=== PATIENT | female | born 1975 | race Caucasian/White ===

== ENCOUNTER 2021-07-05 13:46 | Observation (INO) | payer BC, OTHER ==
[~2021-07-05] VITALS: Ht 154.9 cm; Wt 72.6 kg
[~2021-07-05 13:46] MED LIST: LO ESTRIN
[2021-07-05 13:50] VITALS: BP 153/88
[2021-07-05 14:23] LABS: HEMATOCRIT 37.6 % (37.0-47.0); HEMOGLOBIN 12.2 gm/dL (12.0-15.0); MCH 29.4 pg (26.0-34.0); MCHC 32.4 g/dL (28.0-37.0); MCV 90.8 fL (80.0-100.0); RBC 4.14 mil/uL (4.20-5.00); RDW 13.5 % (10.5-14.5); WBC 8.7 thou/uL (4.0-11.0)
[2021-07-05 14:41] LABS: CALCIUM 8.9 mg/dL (8.5-10.1); CREATININE 0.8 mg/dL (0.6-1.0); POTASSIUM 3.6 mmol/L (3.5-5.1)
[2021-07-05 14:47] LABS: ALBUMIN 3.6 g/dL (3.4-5.0); TOTAL BILIRUBIN 0.3 mg/dL (0.2-1.0); TOTAL PROTEIN 7.6 g/dL (6.4-8.2)
[2021-07-05 16:33] LABS: URINE BILIRUBIN NEGATIVE (Negative); URINE BLOOD 1+ (Negative); URINE CLARITY CLEAR; URINE COLOR YELLOW; URINE GLUCOSE-RANDOM* NEGATIVE (Negative); URINE KETONES NEGATIVE (Negative); URINE LEUKOCYTES-REFLEX NEGATIVE (Negative); URINE NITRITE-REFLEX NEGATIVE (Negative); URINE PROTEIN (DIPSTICK) NEGATIVE (Negative); URINE UROBILINOGEN 0.2 E.U./dl (0.2-1.0)
[2021-07-05 16:36] LABS: CASTS None Seen /LPF (None Seen); SQUAMOUS None Seen /LPF (0-3); URINE WBC-REFLEX 0-5 Rare /HPF (0-5)
[2021-07-05 16:37] LABS: BACTERIA-REFLEX 1-9 Few /HPF (None Seen); CRYSTALS None Seen /LPF (None Seen); URINE RBC 1-2 Rare /HPF (NONE SEEN)
[2021-07-05 19:11] VITALS: BP 141/76
[2021-07-05 20:18] VITALS: BP 141/76
[2021-07-05 20:42] VITALS: BP 126/76
[2021-07-05 21:04] VITALS: BP 128/82
[2021-07-06 05:54] LABS: HEMATOCRIT 32.1 % (37.0-47.0); HEMOGLOBIN 10.8 gm/dL (12.0-15.0); MCH 30.4 pg (26.0-34.0); MCHC 33.8 g/dL (28.0-37.0); RBC 3.56 mil/uL (4.20-5.00); RDW 13.1 % (10.5-14.5); WBC 8.4 thou/uL (4.0-11.0)
[2021-07-06 06:04] LABS: APTT 25.7 Seconds (24.5-32.8); INR 1.01
[2021-07-06 06:08] LABS: CALCIUM 8.1 mg/dL (8.5-10.1); CREATININE 0.7 mg/dL (0.6-1.0); MAGNESIUM 1.7 mg/dL (1.8-2.4); POTASSIUM 3.6 mmol/L (3.5-5.1)
--- NOTE | 2021-07-06 07:01 | NUR ---
ASSUMED CARE AT 2057, PT ALERT AND ORIENTED X4, SLEPT THROUGH THE NIGHT, REPOTRTED NO PAIN, COMPLIANT WITH TX, SBA WITH AMBULATION, SURGERY SCHEDULED TODAY, NO SKIN ISSUES, CALL LIGHT AND BELONGINGS WITHIN REACH, WILL CONTINUE TO MONITOR.
[2021-07-06 07:50] VITALS: BP 138/90
[2021-07-06 08:15] VITALS: BP 137/77
[2021-07-06 10:55] VITALS: BP 144/84
--- NOTE | 2021-07-06 11:35 | NUR ---
Assumed care of pt at 0700. Pt a&ox4. Kidney stone removed in the OR. Stent placed. Pt back to the room. Denies pain. Tolerating diet well. Will likely discharge to home soon. Call light within reach. Will continue to monitor.
[2021-07-06 13:19] VITALS: BP 144/84
--- NOTE | 2021-07-10 13:08 | PATH ---
[facility] [address] [place] [address] PATHOLOGY RPT PROCEDURE Name: AYDEE CHUNG Angela Room #: 448-P [facility] Carlota Nelson#: [id number] Admission: 07/05/21 Date of : 73 Discharge: 07/06/21 Report #: [id number] Path Case #: [id number] [facility] Accession Number: [id number] . 01 Material submitted: . ureter - LEFT URETERAL STONE. Modifiers: left . 01 Clinical history: . CYSTO WITH URETEROSCOPY, STONE MANIP LEFT URETERA STONE . 02 Diagnosis: Calculi, left ureteral stone, removal: - Calculi/ureterolithiasis (gross diagnosis only). - Specimen forwarded for stone analysis, results to be reported in an addendum when available. [facility] 07/08/2021 1619 Local . 02 Electronically signed: . Cassie Padilla MD, Pathologist NPI- [id number] . 01 Gross description: . The specimen is received fresh, labeled "Aydee Chung, left ureteral stone". The specimen consists of multiple brown calculi measuring in aggregate 1.0 x 0.5 x 0.4 cm. The specimen is forwarded to sendouts for further processing. ([facility] [place]; 07/08/2021) [facility] 07/08/2021 1450 Local . 02 Pathologist provided ICD-10: N20.1 . 02 CPT . 230718 Specimen Comment: A courtesy copy of this report has been sent to [phone] Specimen Comment: Report sent to Specimen Comment: A duplicate report has been generated due to demographic updates. Performed at: [address], [place] [id number] MD Lawrence Hernandez MD Phone: [phone] Performed at: [address] [id number] MD Cassie Padilla MD Phone: [phone]
== END 2021-07-06 14:30 | disposition home or self-care (01) ==
LOC: ER 13:46 → EROBS 18:52 → 4S 18:52
PROVIDERS: Nurse Practitioner Family; ADMIT Internal Medicine; ATTEND Internal Medicine
DX: N13.2 Hydronephrosis with renal and ureteral calculous obstruction (principal); Z20.822 Contact with and (suspected) exposure to COVID-19; N83.202 Unspecified ovarian cyst, left side; E66.01 Morbid (severe) obesity due to excess calories; Z79.899 Other long term (current) drug therapy
CPT/HCPCS: 10195; 50101; 50164; 51179; 51620; 51767; 56674; 56815; 57160; 58510; 58565; 62110; 62900; 70005

== ENCOUNTER → 2021-07-16 | Outpatient (CLI) | payer BC, OTHER | LOC: RAD 11:37 | PROVIDERS: ATTEND Family Medicine | DX: Z12.31 Encounter for screening mammogram for malignant neoplasm of breast (principal); N64.89 Other specified disorders of breast ==

== ENCOUNTER → 2021-09-03 | Outpatient (CLI) | payer BC, OTHER | LOC: RAD 08:15 | PROVIDERS: ATTEND Urology | DX: N20.0 Calculus of kidney (principal); R19.5 Other fecal abnormalities ==